=== PATIENT | female | born 1960 | race Caucasian/White ===

== ENCOUNTER → 2024-01-24 14:18 | Outpatient (REF) | payer OTHER, SELFPAY | LOC: WDC 14:18 | PROVIDERS: ATTENDING PHYSICIAN Obstetrics & Gynecology; FAMILY PHYSICIAN Family Medicine | DX: R92.2 Inconclusive mammogram (principal) | CPT/HCPCS: 76641 ==

== ENCOUNTER → 2024-08-12 07:15 | Outpatient (REF) | payer OTHER, SELFPAY | LOC: HWWDC 07:15 | PROVIDERS: ATTENDING PHYSICIAN Obstetrics & Gynecology; FAMILY PHYSICIAN Family Medicine | DX: Z12.31 Encounter for screening mammogram for malignant neoplasm of breast (principal) | CPT/HCPCS: 77063; 77067 ==

== ENCOUNTER 2024-12-23 11:00 | Emergency (ER) | payer OTHER, SELFPAY ==
[2024-12-23 11:15] VITALS: BP 131/77
[2024-12-23 11:35] LABS: % Basophils 0.8 % (0-2); % Eosinophils 1.1 % (0-6); % Immature Granulocytes 0.2 % (0-0.5); % Lymphocytes 27.1 % (20.5-51.1); % Neutrophils 63.8 % (42.2-75.2); Absolute Eosinophils 0.1 10^3/uL (0-0.7); Absolute Lymphocytes 1.4 10^3/uL (1.2-3.4); Absolute Monocytes 0.4 10^3/uL (0.1-0.6); Absolute Neutrophils 3.4 10^3/uL (1.4-6.5); Hematocrit 38.5 % (37.0-47.0); Hemoglobin 13.4 g/dL (12.0-16.0); Mean Corp Hgb Conc. 34.8 g/dL (33.0-37.0); Mean Corpuscular Hgb 30.7 pg (27.0-31.0); Mean Corpuscular Volume 88.1 fL (81.0-99.0); Mean Platelet Volume 10.2 fL (7.4-10.4); Nucleated Red Blood Cells % 0 %; Platelet Count 190 10^3/uL (130-400); Red Blood Cell Count 4.37 10^6/uL (4.20-5.40); Red Cell Dist. Width 11.9 % (11.5-14.5); White Blood Cell Count 5.3 10^3/uL (4.8-10.8)
[2024-12-23 11:54] LABS: ALT (SGPT) 15 U/L (0-35); AST (SGOT) 19 U/L (14-36); Alkaline Phosphatase 47 U/L (38-126); Blood Urea Nitrogen 17 mg/dl (7-17); Calcium 9.6 mg/dl (8.4-10.2); Carbon Dioxide 27 mmol/L (22-30); Chloride 106 mmol/L (98-107); Glucose 100 mg/dl (70-99); Potassium 3.7 mmol/L (3.5-5.1); Sodium 140 mmol/L (135-145); Total Bilirubin 0.8 mg/dl (0.2-1.3); Total Protein 6.5 g/dl (6.3-8.2); eGFR > 60.00
[2024-12-23 12:05] LABS: Troponin I < 0.012 ng/ml
--- NOTE | 2024-12-23 14:10 | ED.GENMED ---
History of Present Illness
General
Chief Complaint: Cardiac Symptoms
Source: patient
Time Seen by Provider: 12/23/24 13:54
History of Present Illness
History of Present Illness:
64-year-old female was sitting at work at approximate 10:15 AM at her desk when she got discomfort across the lateral thorax bilaterally extending to under her breasts. With this, she started to feel slightly lightheaded. Episode lasted for send
then resolved completely. She denies associated diaphoresis, nausea, vomiting, headache, neck pain, jaw pain, abdominal pain, or other complaints. The pain was not pleuritic in nature. She denies associated dyspnea. Patient is currently being
worked up for palpitation and is wearing a monitor, she has a stress and echo scheduled for January, no prior history of CAD.
Past History
Past History
ED Past Medical History: Asthma
Social History
Tobacco: Non-smoker
Alcohol: Occasional
Drug: None
Personal:
Living: with family
Employment: Employed
Family History
Family History: Unable to obtain
Phy Exam
Physical Exam
Physical Exam:
GENERAL: Alert , in no apparent distress
EYE: pupils equal and reactive
NECK: Supple, no significant adenopathy.
ENT: o/p clr, mmm.
CARDIAC: Regular rate and rhythm .
LUNGS: Clear breath sounds bilaterally, no acute respiratory distress, no wheezes/rales/rhonchi
ABDOMEN: Soft, without focal tenderness, no r/g, no cvat
NEUROLOGICAL: Alert and oriented, no focal neuro deficits
SKIN: Warm and dry, skin intact.
MUSCULOSKELETAL: No edema, well perfused.
PSYCH: Normal and appropriate interaction.
Course
Orders/Labs/Results
Orders:
Orders
12/23/24 11:04
ECG [Electrocardiogram (*1)] Urgent
Reason for Study: Chest Pain
12/23/24 11:05
EKG- Treatment ONCE
12/23/24 11:26
Complete Blood Count/With Diff Urgent
Comprehensive Metabolic Panel Urgent
Troponin I Urgent
12/23/24 14:09
CR Chest - 2 Views Urgent
Comment:
Reason For Exam: cp
12/23/24 14:10
Aspirin 325 mg PO NOW STA
12/23/24 14:32
Troponin I Urgent
Abnormal Lab Results
12/23/24
11:26
Glucose 100 H mg/dl
(70-99)
12/23/24 11:26
12/23/24 11:26
Vital Signs
Initial and Last Documented VS:
Initial Vital Signs
Temp Pulse Resp BP Pulse Ox
97.5 F 60 18 131/77 100
12/23/24 11:15 12/23/24 11:15 12/23/24 11:15 12/23/24 11:15 12/23/24 11:15
Last Documented Vital Signs
Temp Pulse Resp BP Pulse Ox
97.5 F 54 9 131/77 100
12/23/24 11:15 12/23/24 14:33 12/23/24 14:33 12/23/24 11:15 12/23/24 11:15
Update Note
Update Note:
Patient presents to the Emergency Department with ____chest pain
Number and Complexity of Problems Addressed at the Encounter
� Chronic conditions affecting care:
� Acute Exacerbation and/or Progression of Chronic Illness:
� Differential Diagnosis includes: But not limited to ACS, anxiety, pleurisy, muscular strain, etc. etc. etc.
Amount and/or Complexity of Data to be Reviewed and Analyzed
� I performed an independent evaluation of and my interpretation is:
EKG: Read by me, normal sinus rhythm, no acute ischemia
CT:
Xrays:cxr nad
Laboratory Studies: Generally unremarkable
Other:
� Review of other/old records reveals:
� Clinical information was obtained by an independent historian:
� Prescriptions/Medications Considered but not given:
� Further testing considered but not performed:
Risk of Complications and/or Morbidity or Mortality of Patient Management
� Social determinants of health affecting care:
� Discussion with other providers (PCP, Hospitalists, Consultants, etc):
� Escalation of care including admission/observation vs risk of discharge considered:hx and physical work up all unremarkable for serious illness. D/w pt import of f/u and raesons to rted.
ED Attending Note
-
Portions of this chart may have been created with voice recognition software.� Occasional wrong word or��sound alike� substitutions may have occurred due to the inherent limitations of voice recognition software.
Discharge Plan
Departure
Patient Disposition: Home (Routine Discharge)
Date of Disposition: 12/23/24
Time of Disposition: 15:10
Patient with high blood pressure during this ER visit?: Yes
Condition: Good
Discharge Problem:
Chest pain
Instructions: Chest Pain (DC), BLOOD PRESSURE
Prescriptions:
No Action
Adreccor
2 tab PO BID
B [place]
1 tab PO DAILY
clobetasol 15 GM cream
1 applic TP TUFR
Bergamot
1 tab PO BID
Coqmax
1 tab PO DAILY
Dimevail
1 tab PO DAILY
Dl Focus
1 tab PO BID
docosahexaenoic acid-epa 1 CAP capsule
2 cap PO BID
Bcq
1 cap PO DAILY
Famotidine 10 MG Tablet
10 mg PO DAILY
Vitamin D3 10,000 UNITS Capsule
10,000 unit PO DAILY
Referrals:
Romeo Peraza MD [Family Provider] -
Maxine Gauthier MD [Active] - Keep scheduled appt
Activity Restrictions/Additional Instructions:
IF YOU DEVELOP RECURRENT PAIN, ANY TROUBLE BREATHING, FEVER, CHILLS, ABDOMINAL PAIN, DIZZINESS, OR OTHER WORRISOME SIGNS, PLEASE RETURN TO THE ER IMMEDIATELY!
Interventions
Interventions:
*Risk Screen - Suicide Last Done: 12/23/24 11:17
*General Assessment Last Done: 12/23/24 11:17
*Neglect/Abuse Screening Last Done: 12/23/24 11:17
*ED- Fall Risk Assessment Last Done: 12/23/24 15:00
*ED COVID-19 Vaccine History Last Done: 12/23/24 11:17
ED- Pulmonary Assessment Last Done: 12/23/24 14:59
ED- Cardiac Assessment Last Done: 12/23/24 14:59
Discharge Date and Time
Print Language: LAO
[2024-12-23] MEDS: ASPIRIN 325 MG PO (14:26)
[2024-12-23 14:29] VITALS: BMI 24.5
[2024-12-23 15:04] LABS: Troponin I < 0.012 ng/ml
== END 2024-12-23 15:25 | disposition home or self-care (01) ==
LOC: EMR 11:00
PROVIDERS: Student in an Organized Health Care Education/Training Program; EMERGENCY PHYSICIAN Emergency Medicine; FAMILY PHYSICIAN Family Medicine
DX: R07.89 Other chest pain (principal); R03.0 Elevated blood-pressure reading, without diagnosis of hypertension
CPT/HCPCS: 99285; 71046; 80053; 84484; 85025; 93005

== ENCOUNTER → 2025-07-09 14:45 | Outpatient (REF) | payer OTHER, SELFPAY | LOC: WDC 14:45 | PROVIDERS: ATTENDING PHYSICIAN Obstetrics & Gynecology; FAMILY PHYSICIAN Family Medicine | DX: R92.2 Inconclusive mammogram (principal) | CPT/HCPCS: 76641 ==